=== PATIENT | female | born 1960 | race Caucasian/White ===

== ENCOUNTER 2018-12-07 01:09 | Emergency (ER) | payer OTHER ==
--- NOTE | 2018-12-07 02:00 | EDM.PDOC ---
ED HPI GENERAL MEDICAL PROBLEM - General Chief Complaint: Head Injury Stated Complaint: HIT HEAD Time Seen by Provider: 12/07/18 01:40 Source of Information: Reports: Patient History Limitations: Reports: No Limitations - History of Present Illness INITIAL COMMENTS - FREE TEXT/NARRATIVE: This lady is worried about a brain bleed. She was at home she was watching TV sitting on a sofa that has a wooden back but normally they have pillows on it. So she sat down on the sofa and said that she hit her head hard against the wood on the back. It hit her in kind of the suboccipital area. She did not have any loss of consciousness her daughters with her says she is acting just fine. The lady is worried because she takes Plavix and aspirin and she was told by somebody at another facility that she always needs to get checked out if she bumps her head. They did do a CT scan on her head back then. She understands the risk of cancer with CT scans Headache Pain Score (Numeric/FACES): 4 - Related Data Allergies Allergy/AdvReac Type Severity Reaction Status Date / Time No Known Allergies Allergy Verified 12/07/18 01:22 Home Meds: Home Meds Aspirin [Halfprin] 81 mg PO DAILY 12/07/18 [History] Celecoxib [CeleBREX] 200 mg PO DAILY 12/07/18 [History] Clopidogrel [Plavix] 75 mg PO DAILY 12/07/18 [History] Etanercept [Enbrel] 50 mg SQ ASDIRECTED 12/07/18 [History] Hydroxychloroquine [Plaquenil] 200 mg PO DAILY 12/07/18 [History] Pravastatin [Pravachol] 40 mg PO DAILY 12/07/18 [History] Sertraline [Zoloft] 150 mg PO DAILY 12/07/18 [History] Valsartan/Hydrochlorothiazide [Valsartan-Hctz 80-12.5 mg Tab] 1 each PO DAILY [History] sulfADIAZINE [Sulfadiazine] 1,000 gm MC BID 12/07/18 [History] Past Medical History HEENT History: Reports: Sinusitis Cardiovascular History: Reports: CAD, High Cholesterol, Hypertension [employer]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: Musculoskeletal History: Reports: RA Endocrine/Metabolic History: Reports: Hypothyroidism Hematologic History: Reports: Iron Deficiency Immunologic History: Reports: Immunosuppression - Past Surgical History HEENT Surgical History: Reports: Other (See Below) Other HEENT Surgeries/Procedures: sinus surgery Cardiovascular Surgical History: Reports: Carotid Stents Female Surgical History: Reports: D&C, Tubal Ligation Social & Family History - Tobacco Use Smoking Status *Q: Former Smoker Used Tobacco, but Quit: Yes Month/Year Tobacco Last Used: 10 years - Caffeine Use Caffeine Use: Reports: Coffee - Recreational Drug Use Recreational Drug Use: No ED ROS GENERAL - Review of Systems Review Of Systems: ROS reveals no pertinent complaints other than HPI. ED EXAM, HEAD INJURY - Physical Exam Exam: See Below Exam Limited By: No Limitations General Appearance: Alert, WD/WN, No Apparent Distress Head: Other (She pointed out the area in the left occipital area where she hit and I can only palpate just the very slightest lump in that area.) Eyes: Bilateral Eye: EOMI, PERRL Throat/Mouth: Normal Inspection Neurologic: clinical psychologist II-XII nml As Tested, No Motor/Sensory Deficits, Alert, Normal Mood/Affect, Oriented x 3, Other (No evidence of a Romberg sign.). No: Abnormal Gait Course - Vital Signs Last Recorded V/S: Last Vital Signs Temp 35.8 C 12/07/18 01:18 Pulse 64 12/07/18 01:18 Resp 16 12/07/18 01:18 BP 127/78 12/07/18 01:18 Pulse Ox 96 12/07/18 01:18 - Re-Assessments/Exams Free Text/Narrative Re-Assessment/Exam: 12/07/18 01:58 The mechanism of injury physical findings and the respiratory history would not support doing a another CT scan on this lady's head. I discussed with her my findings and that I don't think she hit hard enough and I explained what happens with an epidural versus subdural bleed and signs that she might see. Her daughter can check on her every few hours tonight. I did offer to do a CT scan if she insisted but after my explanation she thinks it would be better not to and I agree. I explained that if I were in her place I would not want a head CT. Departure - Departure Time of Disposition: 02:00 Disposition: Home, Self-Care 01 Condition: Fair Clinical Impression: Minor head injury - Discharge Information Referrals: PCP,None [Primary Care Provider] - Additional Instructions: The mechanism of injury and physical findings don't appear to warrant a CT of your head. However I recommend that your daughter check on your every few hours tonight or for the next 12 hours. You'll be furnished a head injury sheet explaining what to look for. If you did develop signs of a cerebral hemorrhage you should call 911 rather than driving to the hospital
== END 2018-12-07 02:29 | disposition home or self-care (01) ==
LOC: JP.ED 01:09
DX: S09.90XA Unspecified injury of head, initial encounter (principal); I10 Essential (primary) hypertension; E78.00 Pure hypercholesterolemia, unspecified; I25.10 Atherosclerotic heart disease of native coronary artery without angina pectoris; Z87.891 Personal history of nicotine dependence; Z79.899 Other long term (current) drug therapy; Z79.82 Long term (current) use of aspirin; W22.8XXA Striking against or struck by other objects, initial encounter
CPT/HCPCS: 99283